=== PATIENT | male | born 1960 | race Caucasian/White ===

== ENCOUNTER → 2018-06-17 12:24 | Outpatient (BNVA) | payer MEDICARE, SELFPAY | PROVIDERS: PCP Internal Medicine; Visit Provider Psychiatry & Neurology Neurology | DX: G20 Parkinson's disease (principal); R41.3 Other amnesia; K59.00 Constipation, unspecified | CPT/HCPCS: 99205 ==

== ENCOUNTER → 2018-10-15 13:59 | Outpatient (BNVA) | payer MEDICARE, MEDICAID, SELFPAY | PROVIDERS: PCP Internal Medicine; Visit Provider Psychiatry & Neurology Neurology | DX: G20 Parkinson's disease (principal); R41.3 Other amnesia; K59.00 Constipation, unspecified | CPT/HCPCS: 99214 ==

== ENCOUNTER → 2020-01-25 13:40 | Outpatient (BNVA) | payer MEDICARE, MEDICAID, SELFPAY | PROVIDERS: PCP Internal Medicine; Referring Provider Internal Medicine; Visit Provider Psychiatry & Neurology Neurology | DX: G20 Parkinson's disease (principal); R41.3 Other amnesia; K59.09 Other constipation | CPT/HCPCS: 99214; 99354 ==

== ENCOUNTER 2020-03-09 16:51 | Outpatient (REF) | payer MEDICARE, SELFPAY ==
[2020-03-09 20:36] LABS: ALT 18 U/L (16-63); AST 23 U/L (15-37); Albumin 3.8 g/dL (3.4-5.0); Alkaline Phosphatase 104 U/L (46-116); Anion Gap 8.5 mmol/L (3-11); BUN 15 mg/dL (7-18); Bilirubin, Total 0.6 mg/dL (0.2-1.0); CO2 29.5 mmol/L (21.0-32.0); CREATININE 1.21 mg/dL (0.70-1.30); Calcium 9.2 mg/dL (8.5-10.1); Chloride 102 mmol/L (98-107); Glucose 99 mg/dL (74-106); Potassium 3.9 mmol/L (3.5-5.1); Sodium 140 mmol/L (136-145); Total Protein 6.8 g/dL (6.4-8.2)
== END 2020-03-09 17:11 ==
LOC: NCHCN 16:51
PROVIDERS: PCP Internal Medicine; Visit Provider Internal Medicine
DX: B02.9 Zoster without complications (principal); G20 Parkinson's disease; F32.9 Major depressive disorder, single episode, unspecified
CPT/HCPCS: 80053

== ENCOUNTER → 2020-03-14 10:50 | Outpatient (BNVA) | payer MEDICARE, MEDICAID, SELFPAY | PROVIDERS: PCP Internal Medicine; Referring Provider Internal Medicine; Visit Provider Psychiatry & Neurology Neurology | DX: G20 Parkinson's disease (principal); R41.3 Other amnesia; K59.09 Other constipation; F32.9 Major depressive disorder, single episode, unspecified | CPT/HCPCS: 99214 ==

== ENCOUNTER → 2020-03-28 13:14 | Outpatient (BNVA) | payer MEDICARE, MEDICAID, SELFPAY | PROVIDERS: PCP Internal Medicine; Referring Provider Internal Medicine; Visit Provider Psychiatry & Neurology Neurology | DX: G20 Parkinson's disease (principal); R41.3 Other amnesia; K59.09 Other constipation; F32.9 Major depressive disorder, single episode, unspecified | CPT/HCPCS: 99213 ==

== ENCOUNTER → 2020-04-25 10:14 | Outpatient (BNVA) | payer MEDICARE, MEDICAID, SELFPAY | PROVIDERS: PCP Internal Medicine; Referring Provider Internal Medicine; Visit Provider Psychiatry & Neurology Neurology | DX: G20 Parkinson's disease (principal); R41.3 Other amnesia; K59.09 Other constipation; F32.9 Major depressive disorder, single episode, unspecified | CPT/HCPCS: 99214 ==

== ENCOUNTER → 2020-05-25 08:51 | Outpatient (BNVA) | payer MEDICARE, MEDICAID, SELFPAY | PROVIDERS: PCP Internal Medicine; Referring Provider Internal Medicine; Visit Provider Psychiatry & Neurology Neurology | DX: G20 Parkinson's disease (principal); F32.9 Major depressive disorder, single episode, unspecified; R41.3 Other amnesia; K59.09 Other constipation | CPT/HCPCS: 99214 ==

== ENCOUNTER → 2020-07-12 13:30 | Outpatient (BNVA) | payer MEDICARE, MEDICAID, SELFPAY | PROVIDERS: PCP Internal Medicine; Referring Provider Internal Medicine; Visit Provider Psychiatry & Neurology Neurology | DX: G20 Parkinson's disease (principal); R41.3 Other amnesia; K59.09 Other constipation; F32.9 Major depressive disorder, single episode, unspecified | CPT/HCPCS: 99213; 99442 ==

== ENCOUNTER → 2020-07-25 14:49 | Outpatient (BNVA) | payer MEDICARE, MEDICAID, SELFPAY | PROVIDERS: PCP Internal Medicine; Referring Provider Internal Medicine; Visit Provider Psychiatry & Neurology Neurology | DX: G20 Parkinson's disease (principal); R53.1 Weakness; R41.3 Other amnesia; K59.09 Other constipation; F32.9 Major depressive disorder, single episode, unspecified | CPT/HCPCS: 99213 ==

== ENCOUNTER → 2020-09-05 07:54 | Outpatient (BNVA) | payer MEDICARE, MEDICAID, SELFPAY | PROVIDERS: PCP Internal Medicine; Referring Provider Internal Medicine; Visit Provider Psychiatry & Neurology Neurology | DX: G20 Parkinson's disease (principal); R53.1 Weakness; R41.3 Other amnesia; K59.09 Other constipation; F32.9 Major depressive disorder, single episode, unspecified | CPT/HCPCS: 99443 ==

== ENCOUNTER → 2020-11-01 07:19 | Outpatient (BNVA) | payer MEDICARE, MEDICAID, SELFPAY | PROVIDERS: PCP Internal Medicine; Referring Provider Internal Medicine; Visit Provider Psychiatry & Neurology Neurology | DX: G20 Parkinson's disease (principal); R53.1 Weakness; R41.3 Other amnesia; K59.09 Other constipation; F32.9 Major depressive disorder, single episode, unspecified | CPT/HCPCS: 99443 ==

== ENCOUNTER 2020-11-16 17:08 | Outpatient (REF) | payer MEDICARE, MEDICAID, SELFPAY ==
[2020-11-16 18:44] LABS: HGB 16.6 g/dL (13.5-17.5); MCHC 34.6 % (32.0-36.0); MCV 89.6 fL (80-95); MPV 11.8 fL (8.0-11.0); Platelet Count 258 10^3/uL (130-400); RBC 5.36 10^6/uL (4.36-5.78); RDW-SD 39.3 fL; WBC 6.38 10^3/uL (4.4-10.8)
[2020-11-16 19:17] LABS: ALT 17 U/L (16-63); AST 18 U/L (15-37); Alkaline Phosphatase 109 U/L (46-116); Anion Gap 9.5 mmol/L (3-11); BUN 13 mg/dL (7-18); Bilirubin, Total 1.1 mg/dL (0.2-1.0); CO2 28.5 mmol/L (21.0-32.0); Calcium 9.3 mg/dL (8.5-10.1); Chloride 103 mmol/L (98-107); Glucose 88 mg/dL (74-106); Potassium 4.1 mmol/L (3.5-5.1); Sodium 141 mmol/L (136-145); TSH 2.72 uIU/mL (0.36-3.74); Total Protein 7.2 g/dL (6.4-8.2)
== END 2020-11-16 17:09 | disposition home or self-care (01) ==
LOC: NCHCN 17:08
PROVIDERS: PCP Internal Medicine; Visit Provider Internal Medicine
DX: R63.4 Abnormal weight loss (principal); R68.89 Other general symptoms and signs; G20 Parkinson's disease
CPT/HCPCS: 80053; 85027; 84439; 84443

== ENCOUNTER → 2021-02-06 07:22 | Outpatient (BNVA) | payer MEDICARE, MEDICAID, SELFPAY | PROVIDERS: PCP Internal Medicine; Visit Provider Psychiatry & Neurology Neurology | DX: G20 Parkinson's disease (principal); R53.1 Weakness; R41.3 Other amnesia; K59.09 Other constipation; F32.9 Major depressive disorder, single episode, unspecified | CPT/HCPCS: 99215 ==

== ENCOUNTER 2021-05-21 16:23 | Outpatient (REF) | payer MEDICARE, SELFPAY ==
[2021-05-23 11:10] LABS: Lyme Ab w Rflx to Lyme Confirm Negative (Negative)
== END 2021-05-21 16:24 | disposition home or self-care (01) ==
LOC: NCHCN 16:23
PROVIDERS: PCP Internal Medicine; Visit Provider Internal Medicine
DX: A69.29 Other conditions associated with Lyme disease (principal)
CPT/HCPCS: 86618

== ENCOUNTER 2021-05-30 17:08 | Outpatient (REF) | payer MEDICARE, SELFPAY | END 2021-05-30 17:09 | disposition home or self-care (01) | LOC: NCHCN 17:08 | PROVIDERS: PCP Internal Medicine; Visit Provider Internal Medicine | DX: N39.8 Other specified disorders of urinary system (principal) | CPT/HCPCS: 87086 ==

== ENCOUNTER → 2021-06-19 09:42 | Outpatient (BNVA) | payer MEDICARE, MEDICAID, SELFPAY | PROVIDERS: PCP Internal Medicine; Visit Provider Psychiatry & Neurology Neurology | DX: G20 Parkinson's disease (principal); R53.1 Weakness; R41.3 Other amnesia; K59.09 Other constipation; F32.9 Major depressive disorder, single episode, unspecified; R35.1 Nocturia | CPT/HCPCS: 99214 ==

== ENCOUNTER → 2021-10-24 09:14 | Outpatient (BNVA) | payer MEDICARE, MEDICAID, SELFPAY | PROVIDERS: PCP Internal Medicine; Visit Provider Psychiatry & Neurology Neurology | DX: F32.9 Major depressive disorder, single episode, unspecified (principal); F41.9 Anxiety disorder, unspecified; K59.09 Other constipation; R41.3 Other amnesia; R35.1 Nocturia; G20 Parkinson's disease | CPT/HCPCS: 99214 ==

== ENCOUNTER 2021-12-18 10:26 | Outpatient (REF) | payer MEDICARE, SELFPAY ==
--- NOTE | 2021-12-18 08:30 | SKI_PTH ---
PATIENT: Marcelino Low LOC: [facility] U#:[id number] AGE/SX: 61/M ROOM: RE12/18/[address]: Johan Meadows MD : [id number] BED: DIS: 12/18/2021 SPEC #: [id number] RECD: 12/18/21 16:36 STATUS: SUKHJINDER REQ #: [id number] WALESKA: 12/18/21 08:[address]: Johan Meadows DEPT: Surgical Specimen RECD BY: Chantell Velazquez ENTERED: 12/18/21 16:37 SP TYPE: FRANKY URIAS DR: Richard Crenshaw Tissues: 1 - SKIN BIOPSY(SHAVE/PUNCH) Procedures: SKIN LEVEL 4 Comments: [id number]
== END 2021-12-18 10:27 | disposition home or self-care (01) ==
LOC: LBN 10:26
PROVIDERS: PCP Internal Medicine; Visit Provider Otolaryngology
DX: C44.329 Squamous cell carcinoma of skin of other parts of face (principal)
CPT/HCPCS: 88305

== ENCOUNTER 2022-02-07 18:08 | Outpatient (REF) | payer MEDICARE, SELFPAY ==
[2022-02-07 19:22] LABS: Abs Immature Grans 0.02 10^3/uL (0.0-0.06); Absolute Basophil Count 0.02 10^3/uL (0.0-0.2); Absolute Eosinophil Count 0.15 10^3/uL (0.0-0.7); Absolute Lymphocyte Count 1.47 10^3/uL (1.2-3.4); Absolute Monocyte Count 0.61 10^3/uL (0.1-0.8); Absolute Neutrophil Count 3.87 10^3/uL (1.2-6.7); Basophils % 0.3; Eosinophils % 2.4; HCT 47.7 % (40.0-50.0); HGB 15.6 g/dL (13.5-17.5); Immature Grans % 0.3; Lymphocytes % 23.9; MCH 30.7 pg (27.0-33.0); MCHC 32.7 % (32.0-36.0); MCV 94 fL (80-95); MPV 12.6 fL (8.0-11.0); Monocytes % 9.9; Neutrophils % 63.2; Platelet Count 180 10^3/uL (130-400); RBC 5.08 10^6/uL (4.36-5.78); RDW 12.1 % (11.8-14.1); RDW-SD 41.9 fL; WBC 6.14 10^3/uL (4.4-10.8)
[2022-02-07 19:29] LABS: Anion Gap 7.2 mmol/L (3-11); BUN 16 mg/dL (7-18); CO2 28.8 mmol/L (21.0-32.0); CREATININE 0.9 mg/dL (0.70-1.30); Calcium 8.9 mg/dL (8.5-10.1); Chloride 106 mmol/L (98-107); Glucose 90 mg/dL (74-106); Potassium 4.2 mmol/L (3.5-5.1); Sodium 142 mmol/L (136-145)
== END 2022-02-07 18:09 | disposition home or self-care (01) ==
LOC: NCHCN 18:08
PROVIDERS: PCP Internal Medicine; Visit Provider Internal Medicine
DX: F32.9 Major depressive disorder, single episode, unspecified (principal); L57.0 Actinic keratosis; G20 Parkinson's disease
CPT/HCPCS: 80048; 85025

== ENCOUNTER 2022-02-19 15:23 | Outpatient (REF) | payer MEDICARE, SELFPAY ==
[2022-02-19 20:39] LABS: Bilirubin Negative (Negative); Blood Negative (Negative); Clarity Sl Cloudy (Clear); Glucose Negative (Negative); Ketones Negative (Negative); Leukocyte Esterase Trace (Negative); Nitrite Negative (Negative); Urobilinogen 0.2 EU/dL (Up TO 0.2); pH 7.5 (5-8)
[2022-02-19 20:58] LABS: C & S Indicated? Yes; Casts Negative LPF (Negative); Crystals Few Amorphous HPF (Negative); Epithelial Cells Negative HPF (Negative); Mucus Moderate (Negative); Other Cells Negative (Negative); RBC Negative HPF (0-2); WBC >50 HPF (0-5)
== END 2022-02-19 15:24 | disposition home or self-care (01) ==
LOC: NCHCN 15:23
PROVIDERS: PCP Internal Medicine; Visit Provider Nurse Practitioner Family
DX: R10.31 Right lower quadrant pain (principal); R82.998 Other abnormal findings in urine
CPT/HCPCS: 81003; 81015; 87086

== ENCOUNTER 2022-06-27 18:43 | Outpatient (REF) | payer MEDICARE, SELFPAY ==
[2022-06-27 19:35] LABS: Vitamin B12 435 pg/mL (193-986)
[2022-07-02 10:13] LABS: Methylmalonic Acid 0.23 nmol/mL (<=0.40)
== END 2022-06-27 18:44 | disposition home or self-care (01) ==
LOC: LBN 18:43
PROVIDERS: PCP Internal Medicine; Visit Provider Psychiatry & Neurology Neurology
DX: G20 Parkinson's disease (principal)
CPT/HCPCS: 80186; 82607

== ENCOUNTER 2022-07-30 12:46 | Outpatient (REF) | payer MEDICARE, SELFPAY ==
[2022-07-30 19:08] LABS: BUN 18 mg/dL (7-18); Chloride 105 mmol/L (98-107); Estimated GFR 86.16 (mL/min/1.73m2); Glucose 92 mg/dL (74-106); NT-proBNP 139 pg/mL (<300); Sodium 140 mmol/L (136-145)
== END 2022-07-30 12:47 | disposition home or self-care (01) ==
LOC: NCHCN 12:46
PROVIDERS: PCP Internal Medicine; Visit Provider Nurse Practitioner Family
DX: R60.0 Localized edema (principal)
CPT/HCPCS: 80048; 83880

== ENCOUNTER 2022-08-09 19:29 | Outpatient (REF) | payer MEDICARE, SELFPAY ==
[2022-08-09 19:25] LABS: Bilirubin Negative (Negative); Blood Negative (Negative); Clarity Cloudy (Clear); Glucose Negative (Negative); Ketones Trace mg/dL (Negative); Leukocyte Esterase Negative (Negative); Nitrite Negative (Negative); Specific Gravity >= 1.030 (1.005-1.025); Urobilinogen 0.2 EU/dL (Up TO 0.2)
[2022-08-09 19:27] LABS: Bacteria Few HPF (Negative); C & S Indicated? No; Casts Negative LPF (Negative); Crystals Negative HPF (Negative); Epithelial Cells Moderate HPF (Negative); Mucus Negative (Negative); Other Cells Moderate Spermatozoa (Negative); RBC Negative HPF (0-2); WBC 0-2 HPF (0-5)
[2022-08-09 19:33] LABS: COMMENT (LAB VIEW ONLY) 207.55 mg/dL
[2022-08-09 19:34] LABS: PROTEIN 332.9 mg/dL
== END 2022-08-09 19:30 | disposition home or self-care (01) ==
LOC: NCHCN 19:29
PROVIDERS: PCP Internal Medicine; Visit Provider Internal Medicine
DX: R60.0 Localized edema (principal); R82.998 Other abnormal findings in urine; R80.8 Other proteinuria
CPT/HCPCS: 81003; 81015; 82565; 84156

== ENCOUNTER 2022-09-06 15:37 | Outpatient (REF) | payer MEDICARE, SELFPAY ==
[2022-09-06 19:28] LABS: ALT 9 U/L (16-63); AST 22 U/L (15-37); Alkaline Phosphatase 111 U/L (46-116); Anion Gap 2.9 mmol/L (3-11); BUN 15 mg/dL (7-18); Bilirubin, Total 0.8 mg/dL (0.2-1.0); CO2 33.1 mmol/L (21.0-32.0); Calcium 9.1 mg/dL (8.5-10.1); Chloride 103 mmol/L (98-107); Estimated GFR 86.16 (mL/min/1.73m2); Glucose 101 mg/dL (74-106); Magnesium 2.2 mg/dL (1.8-2.4); Potassium 3.9 mmol/L (3.5-5.1); Sodium 139 mmol/L (136-145); Total Protein 7.4 g/dL (6.4-8.2)
[2022-09-09 08:13] LABS: PSA, Screening 0.9 ng/mL (<=4.5)
[2022-09-09 12:55] LABS: Albumin 62.4 % (55.8-66.1); Albumin g/dL 4.2 g/dL (3.6-5.2); Total Protein 6.8 g/dL (6.3-8.2)
== END 2022-09-06 15:38 | disposition home or self-care (01) ==
LOC: NCHCN 15:37
PROVIDERS: PCP Internal Medicine; Visit Provider Internal Medicine
DX: R80.9 Proteinuria, unspecified (principal); R60.0 Localized edema; K76.0 Fatty (change of) liver, not elsewhere classified; Z12.5 Encounter for screening for malignant neoplasm of prostate; R41.3 Other amnesia
CPT/HCPCS: 80053; 84153; 83735; 84165

== ENCOUNTER 2022-09-09 10:32 | Outpatient (REF) | payer MEDICARE, SELFPAY ==
[2022-09-09 20:00] LABS: COMMENT (LAB VIEW ONLY) 155.44 mg/dL; PROTEIN 13.5 mg/dL; Prot/Crea Ur Ratio 0.08
== END 2022-09-09 10:33 | disposition home or self-care (01) ==
LOC: NCHCN 10:32
PROVIDERS: PCP Internal Medicine; Visit Provider Internal Medicine
DX: R80.9 Proteinuria, unspecified (principal)
CPT/HCPCS: 82565; 84156

== ENCOUNTER 2023-05-09 16:00 | Outpatient (REF) | payer MEDICARE, MEDICAID, SELFPAY ==
--- OUTSIDE RECORDS SUMMARY | 2023-05-09 16:09 | XMS_ITS | Continuity of Care Document ---
Author Name Unknown Address [address] [place] [address] Phone Organization [facility] Address [address] [place] [address] Phone Support Name Relationship Address Phone eduard zuleta Son Unknown Frannie Garcia Attending Provider [facility] [place] [address] Richard Crenshaw [place] [address] Allergies, Adverse Reactions, Alerts No known allergies. Medications Medication Status Dose Units Route Sig Qty Days Start Date End Date Instructions Carbidopa-Levo dopa Active 1 TAB PO FOUR TIMES DAILY February 17, 2020 11:26am Lorazepam Active 2 MG PO THREE TIMES A DAY February 17, 2020 11:27am Fluoxetine Active 10 MG PO DAILY February 17, 2020 11:28am Bupropion Hbr Active 174 MG PO DAILY Jan 11:28am Problems No problem information available. Advance Directives Advance Directive Response Recorded Date/ Time Does patient have an Advanced Directive? No February 17, 2020 11:12am Do we have a copy on file here at [facility]? No February 17, 2020 11:12am Pt has a Living Will? No February 17, 2020 11:12am Do we have a copy on file here at [facility]? No February 17, 2020 11:12am Pt has a Power of Underwriting Director? No February 17, 2020 11:12am Do we have a copy on file here at [facility]? No February 17, 2020 11:12am Chief Complaint and Reason for Visit Chief Complaint New Patient Encounters Encounter Location(s) Arrival/Admit Date Discharge/Depart Date Provider(s) Departed Physician/Prov ider Office Visit [facility] February 17, 2020 11:12am February 17, 2020 11:40am Frannie Garcia , Assessments No Assessments Information Available Family History Relationship Condition Age at Onset Recorded Date/T natasha Not Specified Multiple sclerosis Unknown Parent Malignant neoplasm Unknown Functional Status No Functional Status information available Goals Goals may be documented in an alternate section. Mental Status No Mental Status Information Available Medical Equipment No Medical Equipment Information available Insurance Providers Guarantor ALLAN EDMONDS Address [address] [place] [id number] Contact Info. Home Phone: Payer Policy Id Coverage Id Subscriber's Name Subscriber Id Effective Date Expiration Date [place] [id number] ALLAN EDMONDS [id number] MEDICARE PART A AND B COVERAGE [id number] ALLAN EDMONDS [id number] SELF PAY Self N/A Social History Assigned Sex Male Vital Signs Vital Reading Result Reference Range Collection Date/Time Height 69 [in_i] February 17, 2020 11:31am Weight 79.37 kg February 17, 2020 11:31am Body Temperature 98.1 [degF] 97.6-99.6 February 17, 2020 11:31am Heart Rate 64 /min 60-100 February 17, 2020 11:31am BP Systolic 134 mm[Hg] 100-140 February 17, 2020 11:31am BP Diastolic 84 mm[Hg] 50-85 February 17, 2020 11:31am BMI (Body Mass Index) 25.8 kg/m2 January 242019 11:31am
[2023-05-09 19:19] LABS: Hemoglobin A1C 5.1 % (<5.7)
[2023-05-09 19:24] LABS: TSH 1.33 uIU/mL (0.36-3.74)
[2023-05-14 09:20] LABS: Methylmalonic Acid 0.12 nmol/mL (<=0.40)
== END 2023-05-09 16:01 | disposition home or self-care (01) ==
LOC: NCHCN 16:00
PROVIDERS: PCP Internal Medicine; Visit Provider Internal Medicine
DX: G62.9 Polyneuropathy, unspecified (principal)
CPT/HCPCS: 80186; 83036; 84443

== ENCOUNTER 2023-09-08 15:21 | Outpatient (REF) | payer MEDICARE, MEDICAID, SELFPAY ==
[2023-09-08 18:59] LABS: HGB 16.7 g/dL (13.5-17.5); MCH 30.4 pg (27.0-33.0); MCHC 33.4 % (32.0-36.0); MCV 91 fL (80-95); MPV 12.1 fL (8.0-11.0); Platelet Count 198 10^3/uL (130-400); RDW 12.3 % (11.8-14.1); RDW-SD 41.3 fL; WBC 8.74 10^3/uL (4.4-10.8)
[2023-09-08 19:24] LABS: Anion Gap 5.5 mmol/L (3-11); BUN 12 mg/dL (7-18); CO2 29.5 mmol/L (21.0-32.0); CREATININE 1.1 mg/dL (0.70-1.30); Calcium 9.4 mg/dL (8.5-10.1); Calculated LDL 123 mg/dL (<100); Chloride 103 mmol/L (98-107); Cholesterol 192 mg/dL (<200); Estimated GFR 76.37 (mL/min/1.73m2); Glucose 96 mg/dL (74-106); HDL Cholesterol 47 mg/dL (40-60); Potassium 4.1 mmol/L (3.5-5.1); Sodium 138 mmol/L (136-145); TSH 2.08 uIU/mL (0.36-3.74); Triglyceride 110 mg/dL (<150)
== END 2023-09-08 15:22 | disposition home or self-care (01) ==
LOC: NCHCN 15:21
PROVIDERS: PCP Internal Medicine; Visit Provider Internal Medicine
DX: E78.5 Hyperlipidemia, unspecified (principal); K21.9 Gastro-esophageal reflux disease without esophagitis; G20.A1 Parkinson's disease without dyskinesia, without mention of fluctuations
CPT/HCPCS: 80048; 80061; 85027; 84443

== ENCOUNTER 2024-11-11 14:22 | Outpatient (REF) | payer MEDICARE, SELFPAY ==
[2024-11-11 19:03] LABS: Anion Gap 8.4 mmol/L (3-11); BUN 20 mg/dL (7-18); CO2 29.6 mmol/L (21.0-32.0); CREATININE 1.2 mg/dL (0.70-1.30); Calcium 9.4 mg/dL (8.5-10.1); Calculated LDL 137 mg/dL (<100); Chloride 103 mmol/L (98-107); Cholesterol 216 mg/dL (<200); Estimated GFR 68.38 (mL/min/1.73m2); Glucose 92 mg/dL (74-106); HDL Cholesterol 51 mg/dL (>or=40); Potassium 4.1 mmol/L (3.5-5.1); Sodium 141 mmol/L (136-145); TSH 1.97 uIU/mL (0.36-3.74); Triglyceride 140 mg/dL (<150)
== END 2024-11-11 14:23 | disposition home or self-care (01) ==
LOC: NCHCN 14:22
PROVIDERS: PCP Internal Medicine; Visit Provider Internal Medicine
DX: E78.5 Hyperlipidemia, unspecified (principal); R25.1 Tremor, unspecified; I10 Essential (primary) hypertension
CPT/HCPCS: 80048; 80061; 84443